=== PATIENT | male | born 1985 | race Caucasian/White ===

== ENCOUNTER 2017-06-11 17:01 | Emergency (ER) | payer OTHER ==
[~2017-06-11] VITALS: Ht 177.8 cm; Wt 110.0 kg
[~2017-06-11 17:01] MED LIST: ATEN-102 PO; HYDR-2768 PO; SERO50TA4 PO; VENL37.5 PO; VENL37.585 PO
[2017-06-11 17:21] VITALS: BP 146/94; PULSE 95; RESP 17; TEMP 98.8; O2SAT 97
--- NOTE | 2017-06-11 18:16 | PD ---
HPI Chief Complaint: Medication Refill Request Time Seen by Provider: 18:02 Travel History International Travel<30 days: No Contact w/Intl Traveler<30days: No Traveled to known affect area: No History of Present Illness HPI This is a 32-year-old male who has a history of traumatic brain injury and aggressive mood disorder who presents to the emergency department having been out of his Effexor and mirtazapine for 4 days. He says since then he has been increasingly agitated, angry, frustrated, and he feels like he is shocks in his head, constant, moderate severity. He is having no thoughts of hurting himself or others. He says he is safe but he feels similar to when he has been out of his medications in the past. He says [facility]. PFSH Past Medical History Hx Anticoagulant Therapy: No Anxiety: Yes Depression: Yes Cardiovascular Problems: Yes (HTN cp) Diabetes: No Diminished Hearing: No Hypertension: Yes Psychiatric: Yes (traumatic brain injury aggressive mood disorder) Immunizations Current: Yes (va) Social History Alcohol Use: No Tobacco Use: Yes (1 pk) Substance Use: No Allergies-Medications (Allergen,Severity, Reaction): Coded Allergies: No Known Allergies (Unverified , 07/20/15) Reported Meds & Prescriptions Reported Meds & Active Scripts Active Effexor (Venlafaxine HCl) 37.5 Mg Tab 3 Tab PO DAILY Seroquel XR 50 mg (Quetiapine Fumarate) 50 Mg Tab 50 Mg PO HS Hctz (Hydrochlorothiazide) 25 Mg Tab 25 Mg PO DAILY Atenolol 50 Mg Tab 50 Mg PO DAILY Reported Hctz (Hydrochlorothiazide) 25 Mg Tab 25 Mg PO DAILY Atenolol 50 Mg Tab 50 Mg PO DAILY Seroquel XR 50 mg (Quetiapine Fumarate) 50 Mg Tab 50 Mg PO HS Effexor 37.5 Mg Tab (Venlafaxine Hcl) 37.5 Mg Tab 3 Tab PO DAILY Review of Systems Except as stated in HPI: all other systems reviewed are Neg Physical Exam Narrative GENERAL:Well appearing, no acute distress SKIN: Focused skin assessment warm and dry. HEAD: Atraumatic. Normocephalic. EYES: Pupils equal and round. No injection or drainage. ENT: Moist mucous membranes NECK: Trachea midline. CARDIOVASCULAR: Regular rate and rhythm. No murmur appreciated. RESPIRATORY: Clear to auscultation. Breath sounds equal bilaterally. GASTROINTESTINAL: Abdomen soft, non-tender, nondistended. MUSCULOSKELETAL: No obvious deformities. NEUROLOGICAL: Awake and alert. No obvious cranial nerve deficits. Moving all extremities. PSYCHIATRIC: Appropriate mood and affect; insight and judgment normal. Data Data Last Documented VS Vital Signs Date Time Temp Pulse Resp B/P (MAP) Pulse Ox O2 Delivery O2 Flow Rate FiO2 06/11/17 17:21 98.8 95 17 146/94 (111) 97 MDM Medical Decision Making Medical Screen Exam Complete: Yes Emergency Medical Condition: Yes Differential Diagnosis mood disorder, SSRI withdrawal, personality disorder Narrative Course This is a 32-year-old male who presents to the emergency department requesting a medication refill for his psychiatric medications. He appears safe for discharge and has no thoughts of hurting himself or others. Diagnosis Primary Impression: Medication refill Patient Instructions: General Instructions Additional Instructions: If you have thoughts of hurting yourself or others please return to the emergency department immediately. Med/Other Pt SpecificInfo: No Change to Meds Disposition: 01 DISCHARGE HOME Condition: Stable Fatimah Dickens MD June 11, 2017 18:16
[2017-06-11] MEDS ORDERED: EFFE150C PO (18:56)
[2017-06-11] MEDS ORDERED: MIRTA15 PO (18:56)
== END 2017-06-11 19:08 | disposition home or self-care (01) ==
LOC: NEPD 17:01
DX: Z76.0 Encounter for issue of repeat prescription (principal); I10 Essential (primary) hypertension; F32.9 Major depressive disorder, single episode, unspecified; F41.9 Anxiety disorder, unspecified; F17.210 Nicotine dependence, cigarettes, uncomplicated; Z87.820 Personal history of traumatic brain injury; Z79.899 Other long term (current) drug therapy
CPT/HCPCS: 99281